=== PATIENT | male | born 1970 | race Caucasian/White ===

== ENCOUNTER 2018-10-31 23:00 | Inpatient (IN) | payer SELFPAY ==
--- NOTE | 2018-11-01 01:43 | PDOC ---
History of Present Illness - General Chief Complaint: Pain Stated Complaint: ABD PAIN Time Seen by Provider: 11/01/18 01:42 - History of Present Illness Initial Comments: 48yo M with PMH of HLD presenting with abdominal pain that started last night. Patient has never had pain like this before. He rates it 10/10 but it has since improved and is now rated 7/10. The pain is located in his epigastrium and he describes it as a "pressure." Nothing makes his pain better or worse. No nausea , vomiting, or diarrhea. Last bowel movement was today and was a normal formed brown stool without blood. No urinary symptoms. Denies surgical history. Has tolerated po intake today with no issues. No fevers, chills, chest pain, or shortness of breath. PCP: does not know Past History - Past Medical History Allergies/Adverse Reactions: Allergies Allergy/AdvReac Type Severity Reaction Status Date / Time No Known Allergies Allergy Verified 10/31/18 23:04 Home Medications: Ambulatory Orders NK [No Known Home Medication] 11/01/18 COPD: No - Suicide/Smoking/Psychosocial Hx Smoking History: Never smoked Review of Systems - Review of Systems Comments:: Constitutional: no fever, no chills HEENT: no throat pain, no dysphagia Cardiovascular: no chest pain, no palpitations Respiratory: no cough, no shortness of breath Gastrointestinal: +abdominal pain, no nausea Genitourinary: no dysuria, no frequency Musculoskeletal: no myalgia, no arthralgia Skin: no rash, no itching Neurologic: no headache, no weakness *Physical Exam - Vital Signs Last Vital Signs Temp Pulse Resp BP Pulse Ox 98.1 F 66 18 134/86 100 10/31/18 23:01 10/31/18 23:01 10/31/18 23:01 10/31/18 23:01 10/31/18 23:01 - Physical Exam Comments: General: Awake, alert, and fully oriented, in no acute distress Head: No signs of trauma Eyes: EOMI, sclera anicteric ENT: Moist mucus membranes Neck: Normal ROM, supple Lungs: Lungs clear, Normal breath sounds Cardio: Regular rhythm, S1 and S2 present Abdomen: Soft, nontender, nondistanded. No guarding, no rebound, no masses. No CVA tenderness bilaterally Extremities: Normal range of motion, Distal pulses present SKIN: Warm, Dry, normal turgor Neurologic: Cranial nerves II through XII grossly intact. Normal speech. ED Treatment Course - LABORATORY CBC & Chemistry Diagram: 11/01/18 02:21 11/01/18 02:21 Medical Decision Making - Medical Decision Making 48yo M with PMH of HLD presenting with abdominal pain that started last night. DDX including but not limited to gastritis, biliary colic, gastroenteritis, pancreatitis Pepcid, Maalox, Fluids Labs, EKG, CTAP 11/01/18 01:43 EKG: rate 57, QTc 416, Sinus bradycardia CBC WBC 9.3 K/mm3 (4.0-10.0) 11/01/18 02:21 RBC 5.22 M/mm3 (4.00-5.60) 11/01/18 02:21 Hgb 15.5 GM/dL (11.7-16.9) 11/01/18 02:21 Hct 45.5 % (35.4-49) 11/01/18 02:21 MCV 87.1 fl (80-96) 11/01/18 02:21 MCH 29.6 pg (25.7-33.7) 11/01/18 02:21 MCHC 34.0 g/dl (32.0-35.9) 11/01/18 02:21 RDW 12.5 % (11.9-15.9) 11/01/18 02:21 Plt Count 171 K/MM3 (134-434) 11/01/18 02:21 MPV 8.1 fl (7.5-11.1) 11/01/18 02:21 Absolute Neuts (auto) 7.1 K/mm3 (1.5-8.0) 11/01/18 02:21 Neutrophils % 76.6 % (42.8-82.8) 11/01/18 02:21 Lymphocytes % 16.6 % (8-40) 11/01/18 02:21 Monocytes % 5.5 % (3.8-10.2) 11/01/18 02:21 Eosinophils % 0.3 % (0-4.5) 11/01/18 02:21 Basophils % 1.0 % (0-2.0) 11/01/18 02:21 Nucleated RBC % 0 % (0-0) 11/01/18 02:21 No anemia or leukocytosis CMP Sodium 142 mmol/L (136-145) 11/01/18 02:21 Potassium 3.9 mmol/L (3.5-5.1) 11/01/18 02:21 Chloride 108 mmol/L (98-107) H 11/01/18 02:21 Carbon Dioxide 27 mmol/L (21-32) 11/01/18 02:21 Anion Gap 7 MMOL/L (8-16) L 11/01/18 02:21 BUN 16.2 mg/dL (7-18) 11/01/18 02:21 Creatinine 0.7 mg/dL (0.55-1.3) 11/01/18 02:21 Est GFR (CKD-EPI)AfAm 130.25 11/01/18 02:21 Est GFR (CKD-EPI)NonAf 112.38 11/01/18 02:21 Random Glucose 111 mg/dL (74-106) H 11/01/18 02:21 Lactic Acid 1.7 mmol/L (0.4-2.0) 11/01/18 02:21 Calcium 8.6 mg/dL (8.5-10.1) 11/01/18 02:21 Total Bilirubin 0.7 mg/dL (0.2-1) 11/01/18 02:21 AST 42 U/L (15-37) H 11/01/18 02:21 ALT 59 U/L (13-61) 11/01/18 02:21 Alkaline Phosphatase 99 U/L (45-117) 11/01/18 02:21 Troponin I < 0.02 ng/ml (0.00-0.05) 11/01/18 02:21 Total Protein 7.1 g/dl (6.4-8.2) 11/01/18 02:21 Albumin 3.8 g/dl (3.4-5.0) 11/01/18 02:21 Lipase 116 U/L (73-393) 11/01/18 02:21 Electrolytes unremarkable Lactate normal Slightly elevated AST Tpn undetectable 11/01/18 02:55 CTAP, via Imaging consultative sales associate: "FINDINGS: Positive for a 3.4 cm x 1 cm x 2.1 cm focus of geographic nonopacification in the left mid to upper renal pole. This has the characteristic of an acute or subacute left renal infarct. The cause of the infarct is not apparent on the scan. Normal right kidney. There is no bowel obstruction or inflammation. Normal appendix. Negative for diverticulitis or colitis. No free intraperitoneal air or free fluid. Normal liver. No obvious gallbladder abnormalities. Normal spleen. Normal pancreas. Normal adrenal glands. Osseous structures are intact. One or more of the following dose reduction techniques were used: automated exposure control, adjustment of the mA and/or kV according to patient size, use of iterative reconstructive technique." Dr Huber discussed case with Dr. Kim who recommended admission and heparin drip. 11/01/18 05:39 Patient laying comfortably in stretcher. States his epigastric pain is improved , now 5/10. Epigastric pain likely not explained by the left renal infarct. Plan for admission for anticoagulation of L. renal infarct 11/01/18 06:[address] Liz and Dr. Boggs who accepted patient for admission 11/01/18 07:24 *DC/Admit/Observation/Transfer Diagnosis at time of Disposition: Renal infarct - Discharge Dispostion Condition at time of disposition: Guarded Decision to Admit order: Yes - Referrals - Patient Instructions - Post Discharge Activity
--- NOTE | 2018-11-01 01:50 | PDOC ---
Attending Attestation - Resident Resident Name: Celina Martinez - ED Attending Attestation I have performed the following: I have examined & evaluated the patient, The case was reviewed & discussed with the resident, I agree w/resident's findings & plan - HPI HPI: 11/01/18 04:45 48-year-old male with epigastric pain. Symptoms began abruptly this evening. - Physicial Exam PE: 11/01/18 05:01 agree with resident exam - Medical Decision Making 11/01/18 05:01 48-year-old male with upper abdominal pain IV fluids, antacids and anti-emetics EKG shows no acute changes Labs are unremarkable CT scan of the abdomen and pelvis pending review for disposition
[2018-11-01] MEDS ORDERED: MAG HYDROX/AL HYDROX/SIMETH -MYLANTA- ORAL SUSPENSION PO ONE (02:00)
[2018-11-01] MEDS ORDERED: FAMOTIDINE 20 MG/50 ML IVPB 20 MG/50 ML MG IVPB ONE ×2 (02:07→02:51)
[2018-11-01] MEDS ORDERED: SODIUM CHLORIDE 0.9% 1000 ML INFUS.BAG IV ONE (02:07)
[2018-11-01 02:36] LABS: EOS % 0.3 % (0-4.5); HEMATOCRIT 45.5 % (35.4-49); HEMOGLOBIN 15.5 GM/dL (11.7-16.9); LYMPH % 16.6 % (8-40); MCH 29.6 pg (25.7-33.7); MEAN CELL VOLUME 87.1 fl (80-96); MEAN PLT VOLUME 8.1 fl (7.5-11.1); MONO % 5.5 % (3.8-10.2); NEUT % 76.6 % (42.8-82.8); PLATELET COUNT 171 K/MM3 (134-434); RBC 5.22 M/mm3 (4.00-5.60); RDW 12.5 % (11.9-15.9); WHITE BLOOD COUNT 9.3 K/mm3 (4.0-10.0)
[2018-11-01] MEDS ORDERED: MAG HYDROX/AL HYDROX/SIMETH 30 ML UNIT-DOSE CUP ONE (02:51)
[2018-11-01 03:06] LABS: ALBUMIN 3.8 g/dl (3.4-5.0); ALK PHOS 99 U/L (45-117); ANION GAP 7 MMOL/L (8-16); BILIRUBIN,TOTAL 0.7 mg/dL (0.2-1); BLOOD UREA NITROGEN 16.2 mg/dL (7-18); CALCIUM 8.6 mg/dL (8.5-10.1); CHLORIDE 108 mmol/L (98-107); CO2 27 mmol/L (21-32); CREATININE 0.7 mg/dL (0.55-1.3); GLUCOSE,RANDOM 111 mg/dL (74-106); POTASSIUM 3.9 mmol/L (3.5-5.1); SGOT/AST 42 U/L (15-37); SGPT/ALT 59 U/L (13-61); SODIUM 142 mmol/L (136-145); TOT PROT 7.1 g/dl (6.4-8.2)
[2018-11-01] MEDS ORDERED: HEPARIN NA (PORCINE) 5,000 UNITS/ML 1ML VIAL IVPUSH PRN ×2 (05:37)
[2018-11-01] MEDS ORDERED: HEPARIN - 25,000 UNIT in SODIUM CHLORIDE 495 ML IV SCH (05:45)
[2018-11-01 06:42] LABS: INR 0.97 (0.83-1.09); PROTHROMBIN TIME (PATIENT) 11.5 SEC (9.7-13.0)
[2018-11-01 06:45] LABS: ACTIVATED PTT 31.4 SECONDS (25.2-36.5)
[2018-11-01] MEDS ORDERED: HEPARIN INFUSION - 25,000 UNITS/500 ML INFUS.BAG IVPB ONE (07:07)
[2018-11-01] MEDS ORDERED: HEPARIN NA (PORCINE) 5,000 UNITS/ML 1ML VIAL ONE (07:07)
--- NOTE | 2018-11-01 08:51 | HP ---
CHIEF COMPLAINT:epigastric pain PCP:none HISTORY OF PRESENT ILLNESS: Patient is a 48 year old male with past medical history of HLD, presented to the ED due to sudden onset severe 10/10 sharp, nonradiating epigastric pain that started last night. Patient reported pain started suddenly while he was sitting down, with no associated nausea, vomiting, headache, dizziness, chest pain, palpitations, hematemesis, melena, changes in bowel habits, urinary symptoms. No aggravating or alleviating factors. Patient denies any NSAID/ASA use. Upon arrival at the ED, patient received IVF and Famotidine, and reported improvement of pain. This morning, patient reports epigastric pain has resolved , and reports feeling well with no complaints. ER course was notable for: (1)CTAP: Positive for a 3.4 cm x 1 cm x 2.1 cm focus of geographic nonopacification in the left mid to upper renal pole. This has the characteristic of an acute or subacute left renal infarct. (2)Vascular consulted, heparin drip recommended. (3) Recent Travel:denies PAST MEDICAL HISTORY: HLD PAST SURGICAL HISTORY: none Social History: Smokin-2 cigarettes per week Alcohol:occasional Drugs: denies Family History: Mother - DM Allergies No Known Allergies Allergy (Verified 10/31/18 23:04) HOME MEDICATIONS: Home Medications Medication Instructions Recorded NK [No Known Home Medication] 11/01/18 REVIEW OF SYSTEMS CONSTITUTIONAL: Absent: fever, chills, diaphoresis, generalized weakness, malaise, loss of appetite, weight change HEENT: Absent: rhinorrhea, nasal congestion, throat pain, throat swelling, difficulty swallowing, mouth swelling, ear pain, eye pain, visual changes CARDIOVASCULAR: Absent: chest pain, syncope, palpitations, irregular heart rate, lightheadedness , peripheral edema RESPIRATORY: Absent: cough, shortness of breath, dyspnea with exertion, orthopnea, wheezing, stridor, hemoptysis GASTROINTESTINAL:abdominal pain Absent: abdominal distension, nausea, vomiting, diarrhea, constipation, melena, hematochezia GENITOURINARY: Absent: dysuria, frequency, urgency, hesitancy, hematuria, flank pain, genital pain MUSCULOSKELETAL: Absent: myalgia, arthralgia, joint swelling, back pain, neck pain SKIN: Absent: rash, itching, pallor HEMATOLOGIC/IMMUNOLOGIC: Absent: easy bleeding, easy bruising, lymphadenopathy, frequent infections ENDOCRINE: Absent: unexplained weight gain, unexplained weight loss, heat intolerance, cold intolerance NEUROLOGIC: Absent: headache, focal weakness or paresthesias, dizziness, unsteady gait, seizure, mental status changes, bladder or bowel incontinence PSYCHIATRIC: Absent: anxiety, depression, suicidal or homicidal ideation, hallucinations. PHYSICAL EXAMINATION Vital Signs - 24 hr 10/31/18 11/01/18 11/01/18 23:01 06:10 06:38 Temperature 98.1 F 98.3 F Pulse Rate 66 Pulse Rate [ 56 L Right Radial] Pulse Rate [ 66 Right] Respiratory 18 16 16 Rate Blood Pressure 134/86 Blood Pressure 135/69 [Left Arm] Blood Pressure 145/90 [Right Arm] O2 Sat by Pulse 100 98 99 Oximetry (%) 11/01/18 07:40 Temperature Pulse Rate Pulse Rate [ Right Radial] Pulse Rate [ Right] Respiratory Rate Blood Pressure Blood Pressure [Left Arm] Blood Pressure [Right Arm] O2 Sat by Pulse 99 Oximetry (%) GENERAL: Awake, alert, and fully oriented, in no acute distress. HEAD: Normal with no signs of trauma. EYES: PERRLA, EOMI, sclera anicteric, conjunctiva clear. EARS, NOSE, THROAT: Moist mucous membranes. NECK: Normal range of motion, supple. LUNGS: Breath sounds equal, clear to auscultation bilaterally. HEART: Regular rate and rhythm, normal S1 and S2 without murmur, rub or gallop. ABDOMEN: Soft, nontender, not distended, normoactive bowel sounds. MUSCULOSKELETAL: Normal range of motion at all joints. No CVA tenderness. UPPER EXTREMITIES: 2+ pulses, warm, well-perfused. No peripheral edema. LOWER EXTREMITIES: 2+ pulses, warm, well-perfused. No peripheral edema. NEUROLOGICAL: Cranial nerves II-XII intact. Normal speech. Normal gait. PSYCHIATRIC: Cooperative. Good eye contact. Appropriate mood and affect. SKIN: Warm, dry, normal turgor, no rashes or lesions noted. Laboratory Results - last 24 hr 11/01/18 11/01/18 11/01/18 02:21 02:21 02:21 WBC 9.3 RBC 5.22 Hgb 15.5 Hct 45.5 MCV 87.1 MCH 29.6 MCHC 34.0 RDW 12.5 Plt Count 171 MPV 8.1 Absolute Neuts (auto) 7.1 Neutrophils % 76.6 Lymphocytes % 16.6 Monocytes % 5.5 Eosinophils % 0.3 Basophils % 1.0 Nucleated RBC % 0 PT with INR INR PTT (Actin FS) Sodium 142 Potassium 3.9 Chloride 108 H Carbon Dioxide 27 Anion Gap 7 L BUN 16.2 Creatinine 0.7 Est GFR (CKD-EPI)AfAm 130.25 Est GFR (CKD-EPI)NonAf 112.38 Random Glucose 111 H Lactic Acid 1.7 Calcium 8.6 Total Bilirubin 0.7 AST 42 H ALT 59 Alkaline Phosphatase 99 Troponin I < 0.02 Total Protein 7.1 Albumin 3.8 Lipase 11/01/18 11/01/18 02:21 05:46 WBC RBC Hgb Hct MCV MCH MCHC RDW Plt Count MPV Absolute Neuts (auto) Neutrophils % Lymphocytes % Monocytes % Eosinophils % Basophils % Nucleated RBC % PT with INR 11.50 INR 0.97 PTT (Actin FS) 31.4 Sodium Potassium Chloride Carbon Dioxide Anion Gap BUN Creatinine Est GFR (CKD-EPI)AfAm Est GFR (CKD-EPI)NonAf Random Glucose Lactic Acid Calcium Total Bilirubin AST ALT Alkaline Phosphatase Troponin I Total Protein Albumin Lipase 116 ASSESSMENT/PLAN: Patient is a 48 year old male with past medical history of HLD, presented to the ED due to sudden onset severe 10/10 sharp, nonradiating epigastric pain that started last night. #Left renal infarct -CTAP: Positive for a 3.4 cm x 1 cm x 2.1 cm focus of geographic nonopacification in the left mid to upper renal pole. This has the characteristic of an acute or subacute left renal infarct. -Vascular surgery (Dr. Kim) consulted. REcommendations appreciated. -IV Heparin started - #Epigastric pain -may be 2/2 GAstritis, GERD -pain improved overnight with Famotidine -EKG: NSR with no acute ST-T wave ischemic changes -Trop <0.02 #FEN -Not on any standing fluids -Electrolytes wnl, routine bmp monitoring -Regular diet #Prophylaxis -Heparin drip #Disposition -full code -admit to med surg Visit type - Emergency Visit Emergency Visit: Yes ED Registration Date: 11/01/18 Care time: The patient presented to the Emergency Department on the above date and was hospitalized for further evaluation of their emergent condition. - New Patient This patient is new to me today: Yes Date on this admission: 11/02/18 - Critical Care Critical Care patient: No ATTENDING PHYSICIAN STATEMENT I saw and evaluated the patient. I reviewed the resident's note and discussed the case with the resident. I agree with the resident's findings and plan as documented. SUBJECTIVE: OBJECTIVE: ASSESSMENT AND PLAN:
[2018-11-01] MEDS ORDERED: PNEUMOC 13-VAL CONJ-DIP CRM/PF 0.5 ML DISP.SYRIN IM ONE (14:23)
[2018-11-01] MEDS ORDERED: PNEUMOCOCCAL 23 VACCINE 0.5 ML VIAL IM ONE (15:00)
--- NOTE | 2018-11-01 15:19 | EKG ---
Test Reason : Blood Pressure : / mmHG Vent. Rate : 057 BPM Atrial Rate : 057 BPM P-R Int : 162 ms QRS Dur : 100 ms QT Int : 428 ms P-R-T Axes : 044 010 037 degrees QTc Int : 416 ms SINUS BRADYCARDIA OTHERWISE NORMAL ECG NO PREVIOUS ECGS AVAILABLE Confirmed by KANDACE QUINTANILLA MD ([id number]) on 11/01/2018 3:18:55 PM Referred By: Confirmed By:KANDACE QUINTANILLA MD
--- NOTE | 2018-11-01 16:10 | EKG ---
Test Reason : Blood Pressure : / mmHG Vent. Rate : 052 BPM Atrial Rate : 052 BPM P-R Int : 152 ms QRS Dur : 102 ms QT Int : 422 ms P-R-T Axes : 025 027 043 degrees QTc Int : 392 ms SINUS BRADYCARDIA OTHERWISE NORMAL ECG NO PREVIOUS ECGS AVAILABLE Confirmed by KANDACE QUINTANILLA MD ([id number]) on 11/01/2018 4:09:59 PM Referred By: Confirmed By:KANDACE QUINTANILLA MD
--- NOTE | 2018-11-01 17:26 | CONSULT ---
Consult Consult Specialty:: Vascular Surgery Reason for Consultation:: Left renal infarct - History Source Limitations to Obtaining History: No Limitations - Smoking History Smoking history: Never smoked Home Medications - Allergies Allergies/Adverse Reactions: Allergies Allergy/AdvReac Type Severity Reaction Status Date / Time No Known Allergies Allergy Verified 10/31/18 23:04 - Home Medications Home Medications: Ambulatory Orders NK [No Known Home Medication] 11/01/18 Review of Systems - Review of Systems Constitutional: reports: No Symptoms Eyes: reports: No Symptoms HENT: reports: No Symptoms Neck: reports: No Symptoms Cardiovascular: reports: No Symptoms Respiratory: reports: No Symptoms Gastrointestinal: reports: No Symptoms Genitourinary: reports: No Symptoms Musculoskeletal: reports: No Symptoms Integumentary: reports: No Symptoms Neurological: reports: No Symptoms Endocrine: reports: No Symptoms Hematology/Lymphatic: reports: No Symptoms Psychiatric: reports: No Symptoms Physical Exam Vital Signs: Vital Signs Temperature 98.5 F 11/01/18 15:45 Pulse Rate 62 11/01/18 15:45 Respiratory Rate 18 11/01/18 15:45 Blood Pressure 128/70 11/01/18 15:45 O2 Sat by Pulse Oximetry (%) 99 11/01/18 07:40 Constitutional: Yes: Well Nourished, No Distress, Calm Eyes: Yes: WNL, Conjunctiva Clear, EOM Intact HENT: Yes: WNL, Atraumatic, Normocephalic Neck: Yes: WNL, Supple, Trachea Midline Cardiovascular: Yes: WNL, Regular Rate and Rhythm Respiratory: Yes: WNL, Regular, CTA Bilaterally Gastrointestinal: Yes: WNL, Normal Bowel Sounds, Tenderness, Epigastrium ...Rectal Exam: Yes: WNL Renal/: Yes: WNL Breast(s): Yes: WNL Musculoskeletal: Yes: WNL Extremities: Yes: WNL Edema: No Peripheral Pulses WNL: Yes Integumentary: Yes: WNL Neurological: Yes: WNL, Alert, Oriented ...Motor Strength: WNL Psychiatric: Yes: WNL Labs: CBC, BMP 11/01/18 02:21 11/01/18 02:21 Problem List - Problems (1) Renal infarct Assessment/Plan: CTAP: Positive for a 3.4 cm x 1 cm x 2.1 cm focus of geographic nonopacification in the left mid to upper renal pole. This has the characteristic of an acute or subacute left renal infarct. Looking at medical history of pt, this all seems embolic. IV heparin started. Pt feels better. Pt might need cardiology eval. senior care AC. Mahad Kim DO Code(s): N28.0 - ISCHEMIA AND INFARCTION OF KIDNEY
[2018-11-01 18:57] VITALS: BMI 30.9
--- NOTE | 2018-11-01 19:22 | PN ---
Teaching Attending Note Name of Resident: Chiara Duran ATTENDING PHYSICIAN STATEMENT I saw and evaluated the patient. I reviewed the resident's note and discussed the case with the resident. I agree with the resident's findings and plan as documented. SUBJECTIVE: Epigastric pain resolved. Desnies any CP/palpiations/vision changes/ speech disturbance/limb numbness, weakness, or tingling. No fever/chills. OBJECTIVE: Afebrile, Hemodynamically Stable. Last Vital Signs Temp Pulse Resp BP Pulse Ox 98.6 F 65 20 129/87 98 11/01/18 18:00 11/01/18 18:00 11/01/18 18:00 11/01/18 18:00 11/01/18 13:00 HEENT - Atraumatic, Normocephalic. Heart - S1, S2, RRR Lungs - Clear to auscultation Abdomen - Soft, non-tender. Bowel Sounds normal. Extremities - no edema, no calf tenderness. Laboratory Results - last 24 hr 11/01/18 11/01/18 11/01/18 02:21 02:21 02:21 WBC 9.3 RBC 5.22 Hgb 15.5 Hct 45.5 MCV 87.1 MCH 29.6 MCHC 34.0 RDW 12.5 Plt Count 171 MPV 8.1 Absolute Neuts (auto) 7.1 Neutrophils % 76.6 Lymphocytes % 16.6 Monocytes % 5.5 Eosinophils % 0.3 Basophils % 1.0 Nucleated RBC % 0 PT with INR INR PTT (Actin FS) Sodium 142 Potassium 3.9 Chloride 108 H Carbon Dioxide 27 Anion Gap 7 L BUN 16.2 Creatinine 0.7 Est GFR (CKD-EPI)AfAm 130.25 Est GFR (CKD-EPI)NonAf 112.38 Random Glucose 111 H Lactic Acid 1.7 Calcium 8.6 Total Bilirubin 0.7 AST 42 H ALT 59 Alkaline Phosphatase 99 Troponin I < 0.02 Total Protein 7.1 Albumin 3.8 Lipase 11/01/18 11/01/18 11/01/18 02:21 05:46 13:48 WBC RBC Hgb Hct MCV MCH MCHC RDW Plt Count MPV Absolute Neuts (auto) Neutrophils % Lymphocytes % Monocytes % Eosinophils % Basophils % Nucleated RBC % PT with INR 11.50 INR 0.97 PTT (Actin FS) 31.4 112.4 H Sodium Potassium Chloride Carbon Dioxide Anion Gap BUN Creatinine Est GFR (CKD-EPI)AfAm Est GFR (CKD-EPI)NonAf Random Glucose Lactic Acid Calcium Total Bilirubin AST ALT Alkaline Phosphatase Troponin I Total Protein Albumin Lipase 116 Current Medications Generic Name Dose Route Start Last Admin Trade Name Freq PRN Reason Stop Dose Admin Heparin Sodium (Porcine) 1,000 unit 11/01/18 05:37 Heparin - IVPUSH PRN PRN Heparin Heparin Sodium (Porcine) 5,000 unit 11/01/18 05:37 11/01/18 07:05 Heparin - IVPUSH 5,000 unit PRN PRN Administration Heparin Heparin Sodium (Porcine) 25, 500 mls @ 20 mls/hr 11/01/18 05:45 11/01/18 16: 30 000 unit/ Sodium Chloride IV 850 unit/hr TITR JULITO 17 mls/hr Titration Protocol 1,000 UNIT/HR Home Medications Medication Instructions Recorded NK [No Known Home Medication] 11/01/18 ASSESSMENT AND PLAN: 48 year old male with past medical history of HLD, presents with epigastric pain , onset last evening without nauasea/vomiting/hematemesis/melena/CP/palpitations /diaphoresis/SOB/fever/chills. CT A/P - Positive for a 3.4 cm x 1 cm x 2.1 cm focus of geographic nonopacification in the left mid to upper renal pole. This has the characteristic of an acute or subacute left renal infarct. 1. Acute/Subacute Left Renal Infarct Telemonitoring and Echo requested to exclude cardiac source of emboli. Renal function normal. Heparin drip started. Vascular Surgery and Hematology consulted for Thrombophilia. 2. Epigastric Discomfort ? referred pain versus Gastritis/GERD Pain appears to have improved with famotidine. Will continue. 3. HLD - not on anti-hyperlipidemics. For out-patient Health Maintenance and lipid profile testing with PCP. DVT PX - on Heparin drip
[2018-11-01] MEDS: RANITIDINE HCL 150 MG TABLET (FP) PO SCH (21:19)
[2018-11-02] MEDS ORDERED: HEPARIN - 25,000 UNIT in SODIUM CHLORIDE 495 ML IV SCH (01:07)
[2018-11-02] MEDS ORDERED: HEPARIN NA (PORCINE) 5,000 UNITS/ML 1ML VIAL IVPUSH PRN ×4 (01:07)
[2018-11-02] MEDS ORDERED: ACETAMINOPHEN 325 MG TABLET (FP) PO PRN (01:21)
[2018-11-02 07:32] LABS: BASO % 1.2 % (0-2.0); EOS % 2.5 % (0-4.5); HEMOGLOBIN 15.8 GM/dL (11.7-16.9); LYMPH % 26.2 % (8-40); MCH 30.6 pg (25.7-33.7); MCHC 35.2 g/dl (32.0-35.9); MEAN CELL VOLUME 86.9 fl (80-96); MEAN PLT VOLUME 8.7 fl (7.5-11.1); NEUT % 61.1 % (42.8-82.8); RBC 5.18 M/mm3 (4.00-5.60); RDW 12.7 % (11.9-15.9); WHITE BLOOD COUNT 7.3 K/mm3 (4.0-10.0)
[2018-11-02 08:00] LABS: ALBUMIN 3.4 g/dl (3.4-5.0); BLOOD UREA NITROGEN 10.3 mg/dL (7-18); CALCIUM 8.6 mg/dL (8.5-10.1); CREATININE 0.6 mg/dL (0.55-1.3); MAGNESIUM 2.5 mg/dL (1.8-2.4); PHOSPHOROUS 3.2 mg/dL (2.5-4.9); POTASSIUM 3.7 mmol/L (3.5-5.1); TOT PROT 6.3 g/dl (6.4-8.2)
[2018-11-02 08:20] LABS: PLATELET COUNT 157 K/MM3 (134-434)
[2018-11-02] MEDS ORDERED: PT OWN MED DRAWER 7, Y5N ONE (09:21)
[2018-11-02] MEDS: RANITIDINE HCL 150 MG TABLET (FP) PO SCH (09:37)
--- NOTE | 2018-11-02 11:03 | ECHO ---
Name: STACY REBOLLAR Exam:Adult Echocardiogram Study Date: 11/02/2018 08:13 AM Age: 48 yrs Reason For Study: RENAL INFARCT ?LV CLOT Height: 62 in Weight: 169 lb BSA: 1.8 m2 MMode/2D Measurements & Calculations IVSd: 0.73 cm Ao root diam: 2.7 cm LVIDd: 4.6 cm LA dimension: 3.3 cm LVIDs: 3.4 cm LVPWd: 0.75 cm EDV(Teich): 96.4 ml LVOT diam: 2.0 cm ESV(Teich): 46.1 ml Doppler Measurements & Calculations MV E max fran: 80.0 cm/sec Ao V2 max: 126.0 cm/sec MV A max fran: 17.8 cm/sec Ao max P.3 mmHg MV E/A: 4.5 Ao V2 mean: 97.9 cm/sec MV dec time: 0.19 sec Ao mean P.1 mmHg Ao V2 VTI: 26.2 cm IVORY(I,D): 2.8 cm2 IVORY(V,D): 2.6 cm2 LV V1 max P.3 mmHg MR max fran: 241.6 cm/sec LV V1 mean P.4 mmHg MR max P.4 mmHg LV V1 max: 103.2 cm/sec LV V1 mean: 73.1 cm/sec LV V1 VTI: 23.2 cm SV(LVOT): 72.9 ml TR max fran: 195.2 cm/sec TR max P.2 mmHg Med Peak E' Fran: 5.6 cm/sec Med E/e': 14.3 Lat Peak E' Fran: 9.9 cm/sec Lat E/e': 8.1 Left Ventricle Left ventricular systolic function is normal. Ejection Fraction = 60-65%. The transmitral spectral Do ppler flow pattern is normal for age. There is no thrombus. Right Ventricle The right ventricle is normal in size and function. Atria Normal left and right atrial size and function. Mitral Valve The mitral valve is normal in structure and function. There is no mitral valve stenosis. There is tra ce mitral regurgitation. Tricuspid Valve The tricuspid valve is normal in structure and function. There is mild tricuspid regurgitation. Aortic Valve The aortic valve opens well. No hemodynamically significant valvular aortic stenosis. No aortic regur gitation is present. Pulmonic Valve The pulmonic valve is not well seen, but is grossly normal. There is no pulmonic valvular stenosis. T here is no pulmonic valvular regurgitation. Great Vessels The aortic root is normal size. Pericardium/Pleura There is no pericardial effusion. Interpretation Summary Left ventricular systolic function is normal. Ejection Fraction = 60-65%. There is no thrombus. The right ventricle is normal in size and function. There is mild tricuspid regurgitation. There is no pericardial effusion. MD Talamantes *Nikole 11/02/2018 11:02 AM
--- NOTE | 2018-11-02 13:12 | PN ---
Progress Note (short form) - Note Progress Note: Patient seen and examined 48 year old male without significant PMH but for hypercholesterolemia presents with sudden onset of mid-epigastric pain. CT revealed a 3.6 x 3.1 x 1.7 cm wedge shaped defect compatible with acute or subacute infarct of embolic etiology. Placed on IV heparin therapy. No family history of strokes, vascular events. Smoker of 1-2 cigarettes per week. No industrial exposures or intoxicants. PE - non revealing . Lab - abnormalities of LFT's . ( AST-60, ALT-64) Patient will need cardiac assessment Patient will need thrombophilia work-up. This can be done as out patient ( I have given my card to patient for out patient follow up) Patient will need bed bug exterminator a/c. Standard therapy with coumadin rather than NOAC. In the absence of a cardiac source, atrial fib, thrombophilia, treatment for 3- 6 months of coumadin followed by ASA indefinitely can be considered. If an embolic source or thrombophilia abnormality , bed bug exterminator anticoagulation.
--- NOTE | 2018-11-02 14:01 | PN ---
Teaching Attending Note Name of Resident: Tanisha Peterson ATTENDING PHYSICIAN STATEMENT I saw and evaluated the patient. I reviewed the resident's note and discussed the case with the resident. I agree with the resident's findings and plan as documented. SUBJECTIVE: Epigastric pain resolved. Denies any CP/palpiations/vision changes/ speech disturbance/limb numbness, weakness, or tingling. No fever/chills. OBJECTIVE: Afebrile, Hemodynamically Stable. Last Vital Signs Temp Pulse Resp BP Pulse Ox 98.4 F 60 16 124/74 99 11/02/18 06:32 11/02/18 06:32 11/02/18 09:00 11/02/18 06:32 11/02/18 09:00 Heart - S1, S2, RRR Lungs - Clear to auscultation Abdomen - Soft, non-tender. Bowel Sounds normal. Extremities - no edema, no calf tenderness. Laboratory Results - last 24 hr 11/01/18 11/01/18 11/02/18 13:48 21:20 06:40 WBC 7.3 RBC 5.18 Hgb 15.8 Hct 45.0 MCV 86.9 MCH 30.6 MCHC 35.2 RDW 12.7 Plt Count 157 MPV 8.7 Absolute Neuts (auto) 4.4 Neutrophils % 61.1 D Lymphocytes % 26.2 D Monocytes % 9.0 Eosinophils % 2.5 D Basophils % 1.2 Nucleated RBC % 0 PTT (Actin FS) 112.4 H 60.3 H Sodium Potassium Chloride Carbon Dioxide Anion Gap BUN Creatinine Est GFR (CKD-EPI)AfAm Est GFR (CKD-EPI)NonAf Random Glucose Calcium Phosphorus Magnesium Total Bilirubin AST ALT Alkaline Phosphatase Total Protein Albumin 11/02/18 11/02/18 06:40 06:40 WBC RBC Hgb Hct MCV MCH MCHC RDW Plt Count MPV Absolute Neuts (auto) Neutrophils % Lymphocytes % Monocytes % Eosinophils % Basophils % Nucleated RBC % PTT (Actin FS) 67.5 H Sodium 141 Potassium 3.7 Chloride 106 Carbon Dioxide 30 Anion Gap 5 L BUN 10.3 Creatinine 0.6 Est GFR (CKD-EPI)AfAm 138.77 Est GFR (CKD-EPI)NonAf 119.73 Random Glucose 98 Calcium 8.6 Phosphorus 3.2 Magnesium 2.5 H Total Bilirubin 1.0 AST 60 H ALT 64 H Alkaline Phosphatase 85 Total Protein 6.3 L Albumin 3.4 Current Medications Generic Name Dose Route Start Last Admin Trade Name Brody PRN Reason Stop Dose Admin Acetaminophen 325 mg 11/02/18 01:21 11/02/18 01:36 Tylenol - PO 325 mg ONCE PRN Administration HEADACHE Heparin Sodium (Porcine) 1,000 unit 11/02/18 01:07 Heparin - IVPUSH PRN PRN Heparin Heparin Sodium (Porcine) 5,000 unit 11/02/18 01:07 Heparin - IVPUSH PRN PRN Heparin Heparin Sodium (Porcine) 25, 500 mls @ 20 mls/hr 11/02/18 01:07 11/02/18 01: 35 000 unit/ Sodium Chloride IV 850 unit/hr TITR JULITO 17 mls/hr Administration Protocol 1,000 UNIT/HR Ranitidine HCl 150 mg 11/01/18 22:00 11/02/18 09:37 Zantac - PO 150 mg BID JULITO Administration ASSESSMENT AND PLAN: 48 year old male with past medical history of HLD, presents with epigastric pain , onset last evening without nausea/vomiting/hematemesis/melena/CP/palpitations/ diaphoresis/SOB/fever/chills. CT A/P - Positive for a 3.4 cm x 1 cm x 2.1 cm focus of geographic nonopacification in the left mid to upper renal pole. This has the characteristic of an acute or subacute left renal infarct. 1. Acute/Subacute Left Renal Infarct Echo - normal, no LV thrombus. No tele-events. Renal function normal. Heparin drip to be transitioned to Coumadin with Lovenox bridging. INR check Thrombophilia work-up as out-patient by Hematology. For out-patient Cardiology eval and further investigations. 2. Epigastric Discomfort ? referred pain versus Gastritis/GERD - resolved. Pain appears to have improved with famotidine. Will continue. 3. HLD - not on anti-hyperlipidemics. For out-patient Health Maintenance and lipid profile testing with PCP. Medically optimized for discharge with Neurology and Hematology follow up. He should take Coumadin 5mg this evening/5mg tomorrow evening/5 mg Monday evening with Lovenox bridging and INR check Monday11/05/18 with further Coumadin/ Lovenox dosing by PCP on Monday. PCP will be contacted, updated, and Monday appt scheduled. Patient will be taught to inject Lovenox by nursing.
[2018-11-02 15:28] VITALS: BP 127/77; PULSE 69; TEMP 98.3
[2018-11-02] MEDS ORDERED: WARFARIN NA 5 MG TABLET (UD) PO ONE (16:04)
--- NOTE | 2018-11-02 17:23 | CONS ---
DATE OF CONSULTATION: DATE OF DICTATION: 11/02/2018 HISTORY OF PRESENT ILLNESS: This is a 48-year-old who presented to the emergency room with the sudden onset of severe epigastric pain. The patient underwent a CAT scan which revealed a 3.4 x 1 x 2.1 cm focus of non-opacification in the left mid to upper renal pole. This was a characteristic of an acute or subacute left renal infarct. The patient had IV heparin instituted. The patient has had improvement of his pain overnight. PAST MEDICAL HISTORY: Positive for hyperlipidemia. There is no history of [place], hypertension, hepatitis, thyroid, kidney disease otherwise. SURGICAL HISTORY: Noncontributory. ALLERGIES: Noncontributory. MEDICATION: None. REVIEW OF SYSTEMS: No headaches. No diplopia. No epistaxis. No dysphagia. No chest pain. Midepigastric pain as aforementioned. No nausea, vomiting, diarrhea, constipation, melena. No dysuria, hematuria. No paresthesias of the lower extremity. No significant back pain. CURRENT PHYSICAL EXAMINATION: VITAL SIGNS: Blood pressure 124/74, pulse 60, temperature 98.4, respirations 16. HEENT: SAN[place], EOM intact. Oropharynx unremarkable. NECK: No cervical supraclavicular axillary or inguinal nodes. LUNGS: Clear to palpation and auscultation without rales or rhonchi. CARDIAC: RSR without murmurs or gallops. BREAST: No gynecomastia. ABDOMEN: Currently soft without organomegaly or masses. GENITOURINARY: Testes are descended, uncircumcised male. EXTREMITIES: No significant edema. LABORATORY: WBC 7.3, hematocrit 45, platelets 157, 61 polycytes, 26 lymphocytes, 9 monocytes. INR on admission 0.97, currently on heparin with PTT therapeutic at 67. Chemistries: 141, 3.7, 106, 30. BUN 10, creatinine 0.6, GFR 120, calcium 8.6, phosphorus 3.2, magnesium 2.5. AST 60, ALT 64, alkaline phosphatase 85. Protein 6.3. Albumin 3.4. Lipase 116. Abdominal CT as aforementioned. Hepatic steatosis with a portal vein being patent. No pancreatic abnormality. Negative gallbladder, biliary duct. Wedge defect in the left kidney measuring 3.6 x 3.1 x 1.7. Findings suggestive of an embolic phenomenon. Abdomen is unremarkable. Prostate is normal with prostatic calcifications. 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 CT scan revealed a left mid pole renal lesion 3.6 in greatest transverse diameter compatible with renal acute or subacute infarct. The patient will need an evaluation of his cardiac status. He will need a thrombophilia workup as well. I have given him information to follow up as an outpatient for a thrombophilia workup. BOB SEGAL M.D. CRISTOFER/[id number]
--- NOTE | 2018-11-02 19:01 | DS ---
Physical Exam: SUBJECTIVE: Patient seen and examined. Has no complaints at this time. Denies chest pain, SOB, abdominal pain, LE edema. OBJECTIVE: Vital Signs Period Temp Pulse Resp BP Sys/Rocha Pulse Ox Last 24 Hr 98.0 F-98.4 F 52-69 16-20 124-132/67-83 99-99 PHYSICAL EXAM GENERAL: The patient is awake, alert, and fully oriented, in no acute distress. LUNGS: Breath sounds equal, clear to auscultation bilaterally, no wheezes, no crackles, no accessory muscle use. HEART: Regular rate and rhythm, S1, S2 without murmur, rub or gallop. ABDOMEN: Soft, nontender, nondistended, normoactive bowel sounds, no guarding, no masses. EXTREMITIES: 2+ pulses, warm, well-perfused, no edema. SKIN: Warm, dry, normal turgor, no rashes or lesions noted. LABS Laboratory Results - last 24 hr Laboratory Last Values WBC 7.3 K/mm3 (4.0-10.0) 11/02/18 06:40 RBC 5.18 M/mm3 (4.00-5.60) 11/02/18 06:40 Hgb 15.8 GM/dL (11.7-16.9) 11/02/18 06:40 Hct 45.0 % (35.4-49) 11/02/18 06:40 MCV 86.9 fl (80-96) 11/02/18 06:40 MCH 30.6 pg (25.7-33.7) 11/02/18 06:40 MCHC 35.2 g/dl (32.0-35.9) 11/02/18 06:40 RDW 12.7 % (11.9-15.9) 11/02/18 06:40 Plt Count 157 K/MM3 (134-434) 11/02/18 06:40 MPV 8.7 fl (7.5-11.1) 11/02/18 06:40 Absolute Neuts (auto) 4.4 K/mm3 (1.5-8.0) 11/02/18 06:40 Neutrophils % 61.1 % (42.8-82.8) D 11/02/18 06:40 Lymphocytes % 26.2 % (8-40) D 11/02/18 06:40 Monocytes % 9.0 % (3.8-10.2) 11/02/18 06:40 Eosinophils % 2.5 % (0-4.5) D 11/02/18 06:40 Basophils % 1.2 % (0-2.0) 11/02/18 06:40 Nucleated RBC % 0 % (0-0) 11/02/18 06:40 PT with INR 11.50 SEC (9.7-13.0) 11/01/18 05:46 INR 0.97 (0.83-1.09) 11/01/18 05:46 PTT (Actin FS) 67.5 SECONDS (25.2-36.5) H 11/02/18 06:40 Sodium 141 mmol/L (136-145) 11/02/18 06:40 Potassium 3.7 mmol/L (3.5-5.1) 11/02/18 06:40 Chloride 106 mmol/L (98-107) 11/02/18 06:40 Carbon Dioxide 30 mmol/L (21-32) 11/02/18 06:40 Anion Gap 5 MMOL/L (8-16) L 11/02/18 06:40 BUN 10.3 mg/dL (7-18) 11/02/18 06:40 Creatinine 0.6 mg/dL (0.55-1.3) 11/02/18 06:40 Est GFR (CKD-EPI)AfAm 138.77 11/02/18 06:40 Est GFR (CKD-EPI)NonAf 119.73 11/02/18 06:40 Random Glucose 98 mg/dL (74-106) 11/02/18 06:40 Lactic Acid 1.7 mmol/L (0.4-2.0) 11/01/18 02:21 Calcium 8.6 mg/dL (8.5-10.1) 11/02/18 06:40 Phosphorus 3.2 mg/dL (2.5-4.9) 11/02/18 06:40 Magnesium 2.5 mg/dL (1.8-2.4) H 11/02/18 06:40 Total Bilirubin 1.0 mg/dL (0.2-1) 11/02/18 06:40 AST 60 U/L (15-37) H 11/02/18 06:40 ALT 64 U/L (13-61) H 11/02/18 06:40 Alkaline Phosphatase 85 U/L (45-117) 11/02/18 06:40 Troponin I < 0.02 ng/ml (0.00-0.05) 11/01/18 02:21 Total Protein 6.3 g/dl (6.4-8.2) L 11/02/18 06:40 Albumin 3.4 g/dl (3.4-5.0) 11/02/18 06:40 Lipase 116 U/L (73-393) 11/01/18 02:21 Stool Occult Blood Negative (NEGATIVE) 11/02/18 16:30 HOSPITAL COURSE: 48 y.o. M PMH HLD presented to [facility] with 10/10 sharp, midepigastric pain that began 1 day prior to admission. PT had CT abd done showing 3.6 x 1 x 1.7cm left to mid upper renal pole focus, characteristic of an acute of subacute left renal infarct. Pt started on heparin drip. Echo negative for valvular abnormalities, no thrombi present, normal EF. Labs significant for mild LFTs; found to have hepatic steatosis on CT. Educated on importance of abstaining from alcohol. Pt to bridge to coumadin with home LVX injections. Pt to f/u at PCP Monday for INR check and repeat LFTs. Date of Admission:11/01/18 CT abd/pel: Which defect within the upper pole of the left kidney suggesting infarct as discussed above. Source of infarct not identified on the present study. Hepatic steatosis. Additional comments noted above. Echo: neg Date of Discharge: 11/02/18 Minutes to complete discharge: 36 Discharge Summary Reason For Visit: RENAL INFARCTION Condition: Stable - Instructions Diet, Activity, Other Instructions: You presented to the hospital for abdominal pain. You had imaging done which revealed a decreased blood flow to a part of your left kidney. You were treated with anticoagulation. Medication Changes: 1.Please start taking Lovenox 120mg by injection. You will inject this medication directly under your skin using a syringe, once per day on Monday and Monday. We have reviewed with you how to inject this medication. On Monday please have your INR drawn and further dosing of Coumadin and Lovenox shots will be explained to you at that time. Follow up with the following physicians: 1. Primary care provider in 1 week. You will need to have an INR level drawn on Monday11/05/18, as well as repeat your liver function tests. You may come to the [facility] [address] to have the blood drawn for INR and for further instructions regarding Coumadin and Lovenox. 2. Dr. Warren (Hematology) in 1 week because you had a clot causing your kidney infarct. 3. Dr. Kim (vascular) in 1 week. While you were here, your imaging also revealed a fatty liver. Please follow up with you PCP. Follow a low fat diet. You are being discharged to your home. Please continue taking all other medications as prescribed. Please refrain from drinking alcohol as this can cause your liver function to decrease. Please return to the ER if you have any signs or symptoms of chest pain, shortness of breath, dizziness, nausea, vomiting, abdominal pains, diarrhea, fevers, fatigue or muscle pains. Please return to the ER if symptoms persist, worsen, or new symptoms arise. Referrals: Kedar Poole MD [Staff Physician] - Mahad Kim MD [Non Staff, Medical] - Ted Warren MD [Staff Physician] - Disposition: HOME - Home Medications Comprehensive Discharge Medication List: Ambulatory Orders Alfuzosin HCl [Alfuzosin HCl ER] 10 mg PO DAILY 11/02/18 Enoxaparin Sodium [Lovenox] 120 mg SQ DAILY 7 Days #7 syringe 11/02/18 Warfarin Na [Coumadin -] 5 mg GT DAILY #2 tablet 11/02/18 This patient is new to me today: No Emergency Visit: No Critical Care patient: No - Discharge Referral Referred to [facility] Med P.C.: No ATTENDING PHYSICIAN STATEMENT I saw and evaluated the patient. I reviewed the resident's note and discussed the case with the resident. I agree with the resident's findings and plan as documented. SUBJECTIVE: OBJECTIVE: ASSESSMENT AND PLAN:
== END 2018-11-02 18:43 | disposition home or self-care (01) | DRG 468 ==
LOC: JER 23:00 → JERBED 11-01 07:25 → J5S 11-01 12:45 → J4S 11-02 01:07
DX: N28.0 Ischemia and infarction of kidney (principal); E78.5 Hyperlipidemia, unspecified; F17.210 Nicotine dependence, cigarettes, uncomplicated; K21.9 Gastro-esophageal reflux disease without esophagitis; K29.70 Gastritis, unspecified, without bleeding; K76.0 Fatty (change of) liver, not elsewhere classified; Z72.89 Other problems related to lifestyle
CPT/HCPCS: 36415; 74177-TC; 80053; 82272; 83605; 83690; 83735; 84100; 84484; 85025; 85610; 85730; 90732; 93005; 93010; 93306-TC; 99284-25; G0009; J1644; J7030